=== PATIENT | male | born 1955 | race Caucasian/White ===

== ENCOUNTER 2016-11-17 06:58 | Emergency (ER) | payer MEDICARE, OTHER ==
[~2016-11-17] VITALS: Ht 172.7 cm; Wt 95.5 kg
[2016-11-17] MEDS ORDERED: 0.9% Sodium Chloride 1,000 ML IV ONE (06:59)
[2016-11-17 07:00] VITALS: BP 123/94; PULSE 192; RESP 19; O2SAT 99
[2016-11-17] MEDS ORDERED: Adenosine 3 mg/mL 2 mL Inj IVPUSH ONE ×2 (07:15)
[2016-11-17 07:35] LABS: BASOPHILS % (AUTO) 0.4 % (0-3); EOSINOPHILS % (AUTO) 2.4 % (0-5); MONOCYTES % (AUTO) 12.9 % (4-12); Mean Corpuscular Hemoglobin 31.2 pg (27.0-35.0); Mean Corpuscular Volume 90.6 fL (81-100); NEUTROPHILS % (AUTO) 45.4 % (40-74); Platelet Count 275 bil/L (150-400)
[2016-11-17 07:53] LABS: TROPONIN T 0.01 ug/L (0.0-0.011)
[2016-11-17 08:04] LABS: Magnesium 2.2 mg/dL (1.6-2.6)
--- NOTE | 2016-11-17 08:29 | DRSVH ---
PROCEDURE: X-RAY CHEST ONE VIEW, PORTABLE ([id number]) INDICATIONS: SVT, recurrent TECHNIQUE: One view of the chest was acquired. COMPARISON: None. FINDINGS: Surgical changes and devices: None. Lungs and pleura: No pleural effusions or pneumothorax. Lungs are clear. Mediastinum: Mediastinal contours appear normal. Heart size is normal. Bones and chest wall: No suspicious bony lesions. Overlying soft tissues appear unremarkable. IMPRESSION: No acute cardiopulmonary findings. Dictated by: Sasha Back M.D. on 11/17/2016 at 8:27 Approved by: Sasha Back M.D. on 11/17/2016 at 8:28
--- NOTE | 2016-11-17 09:24 | ED.REPORT ---
HPI-General Illness Date of Service Nov 17, 2016 ED Provider: Makenzie Carey MD Blaine Brody is a 61yoM with PMH remarkable for HTN and recurrent SVT once requiring reported chemical cardioversion in [place], [place], the patient presents with several hours of racing heart rate. The patient stats that he does not have any chest pain, nausea, or shortness of breath currently. He admits to mild lightheadedness upon standing which is described as mild as well as diaphoresis. The patient states that he has not seen a carediologist and he didn't have a PCP or take his HTN medication because he did not have insurance. He is unsure of what his blood pressure medications were it reportedly took several medications to control, and he knows he took a water pill. His blood pressure is baseline between 150 and 180mmHg systolic and his heart rate is typically 90-100bpm. Nursing Notes Stated Complaint: RAPID HEART RATE Chief Complaint: Dysrhythmia/Cardiac Allergies: Coded Allergies: No Known Allergies (Unverified , 11/17/16) General Time Seen by MD: 07:20 Chief Complaint Other (racing heart rate and sweating) Hx Obtained From: Patient Arrived By: Walk-in (POV) Onset Occurred: 1 - 4 hours ago Symptom Duration: Since onset Severity: Current: No pain currently Severity: Maximum: No pain Recent Healthcare: No recent doctor visit, No recent hospitalization Similar Sx Previous: Yes Past Medical History Past Medical History HTN likley SVT requiring chemical cardioversion Past Surgical History bilateral knee cleanouts Smoking History Current Every Day Smoker, Heavy Tobacco Smoker (1ppd for 40 years) Social History retired from [employer] lives in [facility] Alcohol Use: 1-3 per day Drug Use: Denies drug use Other Social History: Lives alone, , Local resident Ambulatory Status Independent Review of Systems Full Review of Systems Eyes: Denies: Blurred bilateral Respiratory: Denies: Dyspnea on exertion, Non-productive cough, Shortness of breath Cardiovascular: Reports: Palpitations, Denies: Chest pain, Syncope GI: Denies: Abdominal pain, Diarrhea, Nausea, Vomiting Male: Denies Flank pain Musculoskeletal: Denies: Back pain, Extremity swelling Hematologic: Denies Bleeding Endocrine: Denies: Weight gain Skin: Denies Swelling Allergy / Immune: Denies: Allergic reaction Neurologic: Reports: Lightheaded, Denies: Abnormal movement, Focal weakness, Headache, Numbness, Slurred speech , Spinning sensation, Vision change Psychiatric: Denies: Change mental status, Confusion Complete sys rev & neg: except as marked. Physical Exam Vital Signs Vital Signs Date Time Temp Pulse Resp B/P Pulse Ox O2 Delivery O2 Flow Rate FiO2 11/17/16 07:00 192 19 123/94 99 Room Air Initial VS: Reviewed General/Constitutional: Well-developed, Well-nourished Head / Eyes: Atraumatic, Normocephalic, PERRL ENT: Mucous membranes moist, Conjunctiva normal, No scleral icterus Neck: Supple, Non-tender, Full range of motion Respiratory: Breath sounds normal, Clear to auscultation, No respiratory distress Abdomen / GI: Soft, Non-tender, No guarding, No rebound, No distention Back: No CVA tenderness Lymphatic: No lymphadenopathy Extremities: Vascular intact, Neuro intact, No swelling, No tenderness Skin: Warm, No cyanosis Neurologic: Alert, Oriented, Nonfocal Psychiatric: Mood/affect normal, Behavior normal, Normal thought content Respiratory / Chest: Breath sounds NL, Breath sounds = bilat, No respiratory distress Cardiovascular: Heart sounds NL, No murmurs, No rubs, Pulses = bilaterally Heart Rate / Rhythm: Positive: Tachycardia Periph CV / BP Differential: Positive: Capillary refill delayed no notable LE edema Abdomen: Atraumatic, Non-tender, No guarding, No rebound, BS normoactive, No distention Skin: Color NL, No rash, Turgor NL Color / Condition: Positive: Diaphoresis present Neurologic: Oriented X3, Speech NL, No motor deficits, CN II - XII intact Interpretation & Diagnostics Lab Results Interpretation Result Diagram: 11/17/16 0700 11/17/16 0700 Test 11/17/16 07:00 White Blood Count 10.4th/mm3 (3.8-10.1) Red Blood Count 5.55mil/mm3 (4.40-5.80) Hemoglobin 17.3g/dL (13.8-17.2) Hematocrit 50.3% (41.0-50.0) Mean Corpuscular Volume 90.6fL (81-100) Mean Corpuscular Hemoglobin 31.2pg (27.0-35.0) Mean Corpuscular Hemoglobin Concent 34.4% (32.0-37.0) Red Cell Distribution Width 13.4% (12.3-15.4) Platelet Count 275bil/L (150-400) Neutrophils (%) (Auto) 45.4% (40-74) Lymphocytes (%) (Auto) 38.7% (14-46) Monocytes (%) (Auto) 12.9% (4-12) Eosinophils (%) (Auto) 2.4% (0-5) Basophils (%) (Auto) 0.4% (0-3) Sodium Level 138mEq/L (134-144) Potassium Level 4.4mEq/L (3.5-5.2) Chloride Level 101mEq/L (97-108) Carbon Dioxide Level 24mmol/L (18-29) Blood Urea Nitrogen 20mg/dL (8-27) Creatinine 0.77mg/dL (0.76-1.27) Estimat Glomerular Filtration Rate 108mL/min (>59) Glucose Level 144mg/dL (60-99) Calcium Level 8.9mg/dL (8.5-10.1) Magnesium Level 2.2mg/dL (1.6-2.6) Total Bilirubin 0.3mg/dL (0.0-1.2) Aspartate Amino Transf (AST/SGOT) 35U/L (0-50) Alanine Aminotransferase (ALT/SGPT) 71U/L (0-44) Alkaline Phosphatase 80U/L (25-160) Troponin T 0.010ug/L (0.0-0.011) Total Protein 7.3g/dL (6.4-8.4) Albumin 4.2g/dL (3.4-5.0) ECG Interpretation Interpreted by: ED physician Abnormal Rate: 180 Rhythm / Conduction: Tachycardia (narrow complex consistent with SVT, after adenosine IV push patient sinus tachycardia with regular p waves noted on monitor) Procedures SVT Treatment Patient comverted from SVT sinus tachycardia and was monitored for more than 90 minutes without return of SVT Time: 07:30 Procedure Performed by: ED physician, ED resident Consent / Timeout / Setup: Informed consent provided, Consent from patient, Pulse oximeter applied, monitor car operator applied Adenosine IV Attempt # 1: Dose 6mg IVP, Successful, Patient in sinus tach Post-Procedure: Complete relief, No complications, Tolerated procedure well, Patient stable Re-Eval/Medical Decision Med Decision/Clinical Course Patient has a known history of tachycardic arrythmia requiring chemical cardioversion previously, blood work was drawn for troponin and CK/CK-MB ruling out cardiac injury, a EKG showed narrow complex QRS tachycardia consistent with SVT, the patient was prepped with Adenosine and had pvc monitor and defibrillator pads placed, Adenosine cardioversion was successfull the patient was monitored for more than 90minutes without return of SVT. He is directed to follow up with his PCP LULU for a referral to Raffi Ibarra M.D. for cardiac electrical analysis. Counseled Regarding: Diagnosis, Lab results, Need for follow-up, When/why to return to ED Discharge & Departure Primary Impression: SVT (supraventricular tachycardia) Additional Impressions: Encounter for cardioversion procedure History of cardioversion Sinus tachycardia Hypertension Disposition: Home Discharge Condition All VS Reviewed: Yes Condition: Stable Patient Instructions: Supraventricular Tachycardia (ED) Additional Instructions: During your visit to [facility] Emergency Department we obtained blood work for heart injury, hemoglobin levels, and electrolytes. We obtained several EKGs of your heart rhythm both before and after successful cardioversion All your lab values were within normal limits and your EKGs showed identifiable no heart injury We will send you home with recommendations to call your PCP and schedule an ER follow up appointment for as soon as possible so they may refer you to a roof bolter helper, Dr. Leander Ibarra MD is the local licensed pharmacist Do not hesitate to call emergency services or your primary care physician if you experience any of the following. - return of your heart symptoms -Uncontrolled worsening nausea or vomiting. -Severe hypertension. -Syncope or loss of consciousness, or worsening lightheadedness -Chest pain or severe shortness of breath. Follow up with your primary care physician as soon as possible following your emergency department visit for medication checks and general well-being. Referrals: [facility] Emmanuel Blanton MD Crit Care Except Billable Proc Time Spent: 30-74 minutes Services Performed: Patient management by me, Time spent at bedside, Reviewing test results, Reviewing imaging, Discussing patient care, Documentation in record, Time with fam/surrogate Attending Statement Patient seen and examined. Initially presented to the waiting room did not want to be checked in because his heart rate did slow down. After waiting in the waiting room heart rate sped back up again and he chose to be triaged at that point. But back to a room found to be in SVT in the 180s slightly diaphoretic no chest pain no shortness of breath. Adenosine 6 mg used to successfully convert back to sinus rhythm. Labs returned unremarkable no acute coronary syndrome. He is significantly significantly hypertensive and will need follow-up. He states that his blood pressures are typically quite high Stable for discharge at this point copies to: Emmanuel Blanton MD, NICHOLAS K DO Nov 17, 2016 09:24 Makenzie Carey MD Nov 17, 2016 09:57
[2016-11-17 09:45] VITALS: BP 167/114; PULSE 95
[2016-11-17 09:53] VITALS: BP 172/120
== END 2016-11-17 09:50 | disposition home or self-care (01) ==
LOC: SED 06:58
DX: I47.1 Supraventricular tachycardia (principal); I10 Essential (primary) hypertension; J44.9 Chronic obstructive pulmonary disease, unspecified; F17.200 Nicotine dependence, unspecified, uncomplicated; Z29.8 Encounter for other specified prophylactic measures; Z98.890 Other specified postprocedural states; Z86.79 Personal history of other diseases of the circulatory system
CPT/HCPCS: 36415; 71010; 80053; 83735; 84484; 85025; 93005; 94799; 96361; 96374; 99291; J0153; J7030

== ENCOUNTER 2016-12-29 12:24 | Emergency (ER) | payer MEDICARE ==
[~2016-12-29] VITALS: Ht 172.7 cm; Wt 104.5 kg
[2016-12-29 12:27] VITALS: BP 154/119; PULSE 190; RESP 20; O2SAT 98
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
[2016-12-29 12:57] VITALS: BP 169/110; PULSE 115; RESP 24; O2SAT 93
[2016-12-29 13:12] LABS: BASOPHILS % (AUTO) 0.6 % (0-3); MONOCYTES % (AUTO) 11.4 % (4-12); Mean Corpuscular Hemoglobin 31.2 pg (27.0-35.0); Mean Corpuscular Volume 88.6 fL (81-100); Platelet Count 285 bil/L (150-400)
[2016-12-29] MEDS ORDERED: MeTOProlol 1 mg/mL 5 mL Inj IVPUSH ONE (13:30)
[2016-12-29] MEDS ORDERED: Adenosine 3 mg/mL 2 mL Inj ONE (13:31)
[2016-12-29 13:44] LABS: INR 0.9 ratio
[2016-12-29 13:45] VITALS: BP 179/122; PULSE 100; RESP 23; O2SAT 96
[2016-12-29] MEDS ORDERED: Lisinopril 40 Tablet PO ONE (13:50)
[2016-12-29 14:03] LABS: Magnesium 2.1 mg/dL (1.6-2.6)
[2016-12-29] MEDS ORDERED: 0.9% Sodium Chloride 1,000 ML IV ONE (14:16)
[2016-12-29 14:23] LABS: TROPONIN T < 0.010 ug/L (0.0-0.011)
[2016-12-29 14:32] VITALS: BP 189/119; PULSE 86; RESP 20; O2SAT 98
--- NOTE | 2016-12-29 14:40 | DRSVH ---
PROCEDURE: X-RAY CHEST ONE VIEW, PORTABLE ([id number]) INDICATIONS: dysrhythmia TECHNIQUE: One view of the chest was acquired. COMPARISON: [facility], CR, XR CHEST 1VW (PORTABLE), 11/17/2016, 7:20. FINDINGS: Surgical changes and devices: None. Lungs and pleura: No pleural effusions or pneumothorax. There is linear scarring or atelectasis red emonstrated in the right lung base. No acute consolidation. Mediastinum: Mediastinal contours appear normal. Heart size is normal. Bones and chest wall: No suspicious bony lesions. Overlying soft tissues appear unremarkable. IMPRESSION: 1. No acute cardiopulmonary disease. Dictated by: Vicente Garcia M.D. on 12/29/2016 at 14:38 Approved by: Vicente Garcia M.D. on 12/29/2016 at 14:38
== END 2016-12-29 14:37 | disposition home or self-care (01) ==
LOC: SED 12:24
DX: I47.1 Supraventricular tachycardia (principal); I15.9 Secondary hypertension, unspecified; F17.210 Nicotine dependence, cigarettes, uncomplicated; R73.9 Hyperglycemia, unspecified; Z86.73 Personal history of transient ischemic attack (TIA), and cerebral infarction without residual deficits
CPT/HCPCS: 36415; 71010; 80053; 83735; 84484; 85025; 85610; 93005; 96361; 96374; 96375; 99285; J0153; J7030

== ENCOUNTER 2017-01-26 23:09 | Emergency (ER) | payer MEDICARE ==
[~2017-01-26] VITALS: Ht 172.7 cm; Wt 103.0 kg
[2017-01-26 23:10] VITALS: BP 127/88; PULSE 180; RESP 20; O2SAT 96
--- NOTE | 2017-01-26 23:16 | ED.REPORT ---
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 He was driving his car and began experiencing an episode. Pt describes that it, "feels like he's running a marathon." Pt denies CP or SOB. He has had experienced episodes like this previously. He was last seen at the ED for similar symptoms a month ago. Nursing Notes Stated Complaint: RACING HEART Chief Complaint: Dysrhythmia/Cardiac Nursing Notes Reviewed: Yes Allergies: Coded Allergies: No Known Allergies (Unverified , 01/26/17) Scheduled Metoprolol Tartrate (Metoprolol Tartrate) 25 Mg Tablet 25 MG PO BID General Time Seen by MD: 23:15 Chief Complaint Other (heart palpitations) Hx Obtained From: Patient Arrived By: Walk-in Sudden in Onset?: Yes Onset Occurred: Just prior to arrival Symptom Duration: Since onset Severity: Current: No pain currently Associated with: Reports: Diaphoresis Recent Healthcare: Recent doctor visit Similar Sx Previous: Yes Past Medical History Past Medical History HTN Hx paroxysmal SVT Hx TIAs x6 Past Surgical History bilateral knee cleanouts Smoking History Current Every Day Smoker, Heavy Tobacco Smoker Social History retired from [employer] lives in [facility] Alcohol Use: 1-3 per day Drug Use: Denies drug use Other Social History: Lives alone, , Local resident Ambulatory Status Independent Review of Systems heart palpitations Full Review of Systems Respiratory: Denies: Shortness of breath Cardiovascular: Denies: Chest pain GI: Denies: Nausea, Vomiting Skin: Reports Diaphoresis Complete sys rev & neg: except as marked. Physical Exam Vital Signs Vital Signs Date Time Temp Pulse Resp B/P Pulse Ox O2 Delivery O2 Flow Rate FiO2 01/27/17 02:19 36.6 103 28 161/107 95 Room Air 01/26/17 23:10 36.6 180 20 127/88 96 Room Air Initial VS: Reviewed Head / Eyes: Atraumatic, Normocephalic, PERRL Respiratory: Breath sounds normal, Clear to auscultation, No respiratory distress Abdomen / GI: Soft, Non-tender, No guarding, No rebound, No distention Extremities: Vascular intact, Neuro intact, No swelling, No tenderness Neurologic: Alert, Oriented, Nonfocal General/Constitutional: Awake, Alert, Cooperative diaphoretic Heart Rate / Rhythm: Positive: Tachycardia heart inaudible in chest Interpretation & Diagnostics Lab Results Interpretation Result Diagram: 01/26/17232401/26/172324 Test 01/26/17 23:25 01/27/17 01:35 White Blood Count 10.9th/mm3 (3.8-10.1) Red Blood Count 5.05mil/mm3 (4.40-5.80) Hemoglobin 15.9g/dL (13.8-17.2) Hematocrit 45.9% (41.0-50.0) Mean Corpuscular Volume 90.9fL (81-100) Mean Corpuscular Hemoglobin 31.5pg (27.0-35.0) Mean Corpuscular Hemoglobin Concent 34.6% (32.0-37.0) Red Cell Distribution Width 13.3% (12.3-15.4) Platelet Count 260bil/L (150-400) Neutrophils (%) (Auto) 59.1% (40-74) Lymphocytes (%) (Auto) 28.9% (14-46) Monocytes (%) (Auto) 9.0% (4-12) Eosinophils (%) (Auto) 2.1% (0-5) Basophils (%) (Auto) 0.4% (0-3) Sodium Level 139mEq/L (134-144) Potassium Level 3.7mEq/L (3.5-5.2) Chloride Level 101mEq/L (97-108) Carbon Dioxide Level 22mmol/L (18-29) Blood Urea Nitrogen 20mg/dL (8-27) Creatinine 0.87mg/dL (0.76-1.27) Estimat Glomerular Filtration Rate 94mL/min (>59) Glucose Level 203mg/dL (60-99) Calcium Level 9.4mg/dL (8.5-10.1) Magnesium Level 2.0mg/dL (1.6-2.6) Total Bilirubin 0.2mg/dL (0.0-1.2) Aspartate Amino Transf (AST/SGOT) 28U/L (0-50) Alanine Aminotransferase (ALT/SGPT) 67U/L (0-44) Alkaline Phosphatase 83U/L (25-160) Pro-B-Type Natriuretic Peptide 6.40pg/mL (0-210) Total Protein 7.3g/dL (6.4-8.4) Albumin 4.4g/dL (3.4-5.0) Hold Weldon Top Tube Received (Received) Troponin T 0.010ug/L (0.0-0.011) ECG Interpretation ECG Interpretation: wide QRS early transition Time: 11:19 Interpreted by: ED physician Rhythm / Conduction: Tachycardia (rate 174) Time: 11:31 Interpreted by: ED physician Rhythm / Conduction: Tachycardia (116) X-Ray Chest Interpretation Chest Xray Interpretation: Impression: No acute findings View: Portable Interpretation / Wet Read by: Wet read ED physician Re-Eval/Medical Decision Med Decision/Clinical Course 61-year-old presents with one of multiple episodes of paroxysmal SVT. He has sustained rates in the 180 range, without chest pain. He has responded to 12 mg of adenosine with reversion to sinus tachycardia and ultimately sinus rhythm. Troponins are negative 2 and postconversion EKG is reassuring. He is discharged in stable condition. Discussed potential ablation with him at some length. Provided with Dr. Ibarra's number for follow-up. Time of Eval: 00:24 Patient Status: Condition improved Re-Evaluation/Progress Note: Pt rechecked. He is no longer diaphoretic or tachycardic. He will need to remain in the ED for another hour to obtain another troponin read. Plan for metropolol. Pt understands and agrees with plan. All questions addressed. Counseled Regarding: Diagnosis, Lab results, Need for follow-up, When/why to return to ED Discharge & Departure Primary Impression: SVT (supraventricular tachycardia) Disposition: Home Discharge Condition All VS Reviewed: Yes Condition: Stable Additional Instructions: We do not find evidence of cardiac damage. These episodes are individually potentially dangerous, and you should seriously consider ablation. The electrophysiology insole stiffener contact information is provided below. Begin metoprolol one tablet twice daily. Contact your primary care doctor for an electrophysiology referral, and also to recheck you regarding your blood pressure and your medical regimen. Return any time for recurrent symptoms. Return for shortness of breath, nausea , chest pain, or any other new symptom of concern. Avoid excessive caffeine. Referrals: Emmanuel Blanton MD (PCP) Crit Care Except Billable Proc Time Spent: 30-74 minutes (thirty minutes) Services Performed: Patient management by me, Time spent at bedside, Reviewing test results, Reviewing imaging, Discussing patient care, Documentation in record Scribe Attestation Portion of this note were transcribed by Stacie Nava. I, Dr. Montano, personally performed the history, physical exam, and medical decision-making: I reviewed and confirmed the accuracy for the information in the transcribed note. Signed by: jacob Ma, 01/27/17 0100 copies to: Emmnauel Blanton MD, Christopher W MD Jan 26, 2017 23:16 Stacie Nava Jan 26, 2017 23:23
[2017-01-26] MEDS ORDERED: Adenosine 3 mg/mL 2 mL Inj ONE (23:20)
[2017-01-26 23:48] LABS: BASOPHILS % (AUTO) 0.4 % (0-3); EOSINOPHILS % (AUTO) 2.1 % (0-5); Mean Corpuscular Hemoglobin 31.5 pg (27.0-35.0); Mean Corpuscular Volume 90.9 fL (81-100); NEUTROPHILS % (AUTO) 59.1 % (40-74); Platelet Count 260 bil/L (150-400)
[2017-01-27 00:05] LABS: TROPONIN T 0.01 ug/L (0.0-0.011)
[2017-01-27] MEDS ORDERED: Adenosine 3 mg/mL 2 mL Inj IVPUSH ONE (00:25)
[2017-01-27] MEDS ORDERED: METO25TA6 PO (02:10)
[2017-01-27 02:19] VITALS: BP 161/107; PULSE 103; RESP 28; O2SAT 95
--- NOTE | 2017-01-27 09:15 | DRSVH ---
PROCEDURE: X-RAY CHEST ONE VIEW, PORTABLE ([id number]) INDICATIONS: rapid heart rate TECHNIQUE: One view of the chest was acquired. COMPARISON: [facility], CR, XR CHEST 1VW (PORTABLE), 12/29/2016, 13:27. FINDINGS: Surgical changes and devices: None. Lungs and pleura: No pleural effusions or pneumothorax. Lungs are clear. Mediastinum: Mediastinal contours appear normal. Heart size is normal. Bones and chest wall: No suspicious bony lesions. Overlying soft tissues appear unremarkable. IMPRESSION: No acute cardiopulmonary disease process. Dictated by: Danita Rodriguez MD, PhD on 01/27/2017 at 9:13 Approved by: Danita Rodriguez MD, PhD on 01/27/2017 at 9:13
== END 2017-01-27 02:27 | disposition home or self-care (01) ==
LOC: SED 23:09
DX: I47.1 Supraventricular tachycardia (principal); I10 Essential (primary) hypertension; F17.200 Nicotine dependence, unspecified, uncomplicated; Z86.73 Personal history of transient ischemic attack (TIA), and cerebral infarction without residual deficits
CPT/HCPCS: 36415; 71010; 80053; 83735; 83880; 84484; 85025; 93005; 96374; 99291; J0153

== ENCOUNTER 2017-02-09 09:17 | Emergency (ER) | payer MEDICARE ==
[~2017-02-09] VITALS: Ht 172.7 cm; Wt 104.5 kg
[~2017-02-09 09:17] MED LIST: METO25TA6 PO
[2017-02-09 09:21] VITALS: BP 127/95; PULSE 192; PULSE 195; RESP 30; RESP 32; O2SAT 97
--- NOTE | 2017-02-09 09:26 | ED.REPORT ---
HPI-Chest Pain 40 and Over Date of Service February 09, 2017 ED Provider: Berhane Polo DO Pt is a 61 y.o. 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 He reports associated SOB and lightheadedness. He states bearing down does not relieve his sx. Pt has been seen for the same sx three times this year (11/17, 12/29, and 01/26). Nursing Notes Stated Complaint: RAPID HEART RATE Chief Complaint: Dysrhythmia/Cardiac Nursing Notes Reviewed: Yes Allergies: Coded Allergies: No Known Allergies (Unverified , 02/11/17) Scheduled Metoprolol Succinate ER (Metoprolol Succinate ER) 50 Mg Tab.er.24h 50 MG PO DAILY Metoprolol Tartrate (Metoprolol Tartrate) 25 Mg Tablet 25 MG PO BID General Time Seen by MD: 09:26 Chief Complaint Other (Rapid palpitations) Hx Obtained From: Patient Arrived By: Walk-in Sudden in Onset?: Yes Onset Occurred: 16 - 30 minutes ago Symptom Duration: Since onset Severity: Current: No pain currently Severity: Maximum: No pain Recent Healthcare: No recent hospitalization Similar Sx Previous: Yes Past Medical History Past Medical History HTN Hx paroxysmal SVT Hx TIAs x6 Past Surgical History bilateral knee cleanouts Smoking History Current Every Day Smoker, Heavy Tobacco Smoker Social History retired from [employer] lives in [facility] Alcohol Use: 1-3 per day Drug Use: Denies drug use Other Social History: Lives alone, , Local resident Ambulatory Status Independent Review of Systems Respiratory: Reports: Shortness of breath Cardiovascular: Reports: Palpitations (Rapid) Neurologic: Reports: Lightheaded Complete sys rev & neg: except as marked. Physical Exam Initial Vital Signs Vital Signs (First) Date Time Temp Pulse Resp B/P Pulse Ox O2 Delivery O2 Flow Rate FiO2 02/09/17 09:21 195 32 97 Room Air 02/09/17 09:21 36.8 127/95 Initial VS: Reviewed Head / Eyes: Atraumatic, Normocephalic, PERRL Extremities: Vascular intact, Neuro intact Skin: Warm, Dry, No cyanosis Neurologic: Alert, Oriented, Nonfocal Psychiatric: Mood/affect normal, Behavior normal, Normal thought content General/Constitutional: Awake, Alert, Well developed, Well hydrated, Well nourished Appearance / Presentation: Positive: Obese Diaphoretic Respiratory / Chest: Atraumatic, Breath sounds NL, Breath sounds = bilat, No respiratory distress Cardiovascular: Regular rhythm, Heart sounds NL, Peripheral circulation NL Heart Rate / Rhythm: Positive: Tachycardia Abdomen: Atraumatic, No distention Interpretation & Diagnostics Lab Results Interpretation Result Diagram: 02/09/17 0949 02/09/17 0949 Test 02/09/17 09:49 02/09/17 12:20 White Blood Count 10.5th/mm3 (3.8-10.1) Red Blood Count 5.59mil/mm3 (4.40-5.80) Hemoglobin 17.2g/dL (13.8-17.2) Hematocrit 49.6% (41.0-50.0) Mean Corpuscular Volume 88.7fL (81-100) Mean Corpuscular Hemoglobin 30.8pg (27.0-35.0) Mean Corpuscular Hemoglobin Concent 34.7% (32.0-37.0) Red Cell Distribution Width 13.5% (12.3-15.4) Platelet Count 306bil/L (150-400) Neutrophils (%) (Auto) 64.8% (40-74) Lymphocytes (%) (Auto) 24.5% (14-46) Monocytes (%) (Auto) 8.4% (4-12) Eosinophils (%) (Auto) 1.4% (0-5) Basophils (%) (Auto) 0.6% (0-3) D-Dimer 0.60mg/L FEU (<0.50) Sodium Level 138mEq/L (134-144) Potassium Level 4.5mEq/L (3.5-5.2) Chloride Level 101mEq/L (97-108) Carbon Dioxide Level 21mmol/L (18-29) Blood Urea Nitrogen 13mg/dL (8-27) Creatinine 0.86mg/dL (0.76-1.27) Estimat Glomerular Filtration Rate 95mL/min (>59) Glucose Level 241mg/dL (60-99) Hemoglobin A1c 6.7% (4.8-5.6) Calcium Level 9.4mg/dL (8.5-10.1) Magnesium Level 2.1mg/dL (1.6-2.6) Total Bilirubin 0.4mg/dL (0.0-1.2) Aspartate Amino Transf (AST/SGOT) 29U/L (0-50) Alanine Aminotransferase (ALT/SGPT) 70U/L (0-44) Alkaline Phosphatase 87U/L (25-160) Troponin T 0.010ug/L (0.0-0.011) Total Protein 7.4g/dL (6.4-8.4) Albumin 4.1g/dL (3.4-5.0) Thyroid Stimulating Hormone (TSH) 3.350uIU/mL (0.450-4.500) Free Thyroxine 1.07ng/dL (0.82-1.77) Hold Urine Received (Received) ECG Interpretation ECG Interpretation: SVT with rate of 183 Time: 09:34 Interpreted by: ED physician ECG Interpretation: Left AV block Time: 11:30 Interpreted by: ED physician Rhythm / Conduction: Tachycardia (101) Repeat ECG: Repeat ECG unchanged Cardiac / Vascular Lab Interp D-Dimer elevated CT Chest Interpretation IMPRESSION: 1. No acute pulmonary embolus. 2. Multiple 2-5 mm diameter pulmonary nodules. Six-month followup CT recommended to ensure stability. 3. Questionable left adrenal gland mass. Nonemergent adrenal mass protocol CT recommended. Dictated by: Sasha Back M.D. on 02/09/2017 at 12:38 Approved by: Sasha Back M.D. on 02/09/2017 at 12:40 Procedures SVT Treatment Time: 09:38 Procedure Performed by: ED physician Consent / Timeout / Setup: Informed consent provided, Consent from patient, Time-out performed, Oxygen administered, Pulse oximeter applied, athletic monitor applied Bearing Down - Valsalva: Patient still in SVT Adenosine IV Attempt # 1: Dose 6mg IVP, Unsuccessful, Patient still in SVT Adenosine IV Attempt # 2: Dose 12mg IVP, Successful, Patient in sinus tach Post-Procedure: Tolerated procedure well, Patient stable Re-Eval/Medical Decision Med Decision/Clinical Course 61-year-old male with a history of recurrent SVT presents in SVT that started spontaneously this morning approximately 20 minutes prior to arrival. He has not had a workup to figure out why this continues to happen. He did not initially respond to 6 mg of adenosine, however 12 mg converted him back to normal sinus rhythm. He did remain tachycardic in the 110s despite being given IV fluids for possible dehydration. Today after consulting with Dr. Marley, our explosive operator fuse, we checked a TSH and free T4 which was normal, a d-dimer which returned elevated and subsequent CT chest for pulmonary embolus turned negative. However on this exam it was noted that he had an adrenal mass and in light of his hypertension we will be checking urine metanephrines as an outpatient. Incidental pulmonary nodules were also found which will require follow-up CT, and I discussed this with the patient. His urine drug screen was negative. He also needs an echocardiogram as an outpatient. Dr. Marley will see if she can expedite the consultation with Dr. Ibarra. Patient is interested in having an ablation to eliminate this ongoing recurrence. He was discharged today with an increased dose of his metoprolol XL, now taking 50 mg daily. Source of Hx: Old records Time of Eval: 09:42 Re-Evaluation/Progress Note: After SVT treatment procedure pt is improved with a HR in the 120's Time of Eval: 11:20 Re-Evaluation/Progress Note: Pt rechecked. Pt is still tachycardic with HR in 110's. Discussed consult with Dr. Marley. Time of Eval: 12:11 Re-Evaluation/Progress Note: Pt notified of elevated d-dimer and need for CTA, he understands and agrees with plan. Time of Eval: 13:06 Re-Evaluation/Progress Note: Discussed lab results, imaging, and plan for discharge. Pt understands and agrees with plan. Consultation #1: Referral / Consult Name: Stacy Marley MD Consulted With: Cardiology Call Returned at: 11:14 Note: Discussed pt condition. Recommended TSH and T4 as well as outpatient echo. Will see pt in ED Consultation #2: Referral / Consult Name: Stacy Marley MD Consulted With: Cardiology Call Returned at: 13:16 Note: Recommends toprol xl 50mg for pt. Counseled Regarding: Diagnosis, Lab results, Need for follow-up, When/why to return to ED Discharge & Departure Primary Impression: SVT (supraventricular tachycardia) Additional Impressions: Hyperglycemia Lung nodules Adrenal mass Ruled Out: Pulmonary emboli, Hypothyroidism, Hyperthyroidism Disposition: Home Discharge Condition All VS Reviewed: Yes Condition: Improved Additional Instructions: Thank you for entrusting us with your care today. You were in a rhythm called supraventricular tachycardia when you arrived, it was converted using 12mg Adenosine. I recommend you call Dr. Ibarra's office on Saturday to schedule a follow-up appointment. Your imaging showed long nodules and an adrenal mass and your lab results showed hyperglycemia. You should follow-up with your primary care provider regarding these diagnoses for further work-up. Return if you develop any new or worsening symptoms. Dr. Marley recommends we increase your metoprolol XL from 25 mg once daily to 50 mg once daily. Have the outpatient urine test done to look for other causes for your recurring arrhythmia. Referrals: Emmanuel Blanton MD (PCP) Maria Eugenia Attestation Portions of this note were transcribed by Vee Martell. I, Dr. Polo personally performed the history, physical exam and medical decision-making; I reviewed and confirmed the accuracy of the information in the transcribed note. Signed by: Maria Eugenia Babin, 02/09/17 and 1315 copies to: Emmanuel Blanton MD, Gary R DO February 09, 2017 09:26 VEE MARTELL February 09, 2017 09:33
[2017-02-09] MEDS ORDERED: Adenosine 3 mg/mL 2 mL Inj ONE ×2 (09:27→09:35)
[2017-02-09 09:30] VITALS: BP 112/96; PULSE 183; RESP 22; O2SAT 94
[2017-02-09 09:53] VITALS: BP 126/99; PULSE 106; RESP 18; O2SAT 92
[2017-02-09 09:58] LABS: BASOPHILS % (AUTO) 0.6 % (0-3); EOSINOPHILS % (AUTO) 1.4 % (0-5); MONOCYTES % (AUTO) 8.4 % (4-12); Mean Corpuscular Hemoglobin 30.8 pg (27.0-35.0); Mean Corpuscular Volume 88.7 fL (81-100); NEUTROPHILS % (AUTO) 64.8 % (40-74); Platelet Count 306 bil/L (150-400)
[2017-02-09 10:17] LABS: TROPONIN T 0.01 ug/L (0.0-0.011)
[2017-02-09 10:28] LABS: Magnesium 2.1 mg/dL (1.6-2.6)
[2017-02-09 10:44] VITALS: BP 147/92; PULSE 107; RESP 18; O2SAT 94
[2017-02-09 11:30] VITALS: BP 133/96; PULSE 104; RESP 19; O2SAT 93
[2017-02-09] MEDS ORDERED: 0.9% Sodium Chloride 1,000 ML IV ONE (11:44)
--- NOTE | 2017-02-09 12:42 | DRSVH ---
PROCEDURE: CT ANGIO CHEST PULMONARY EMBOLISM ([id number]) INDICATIONS: tachycardia, sob, elevated d dimer TECHNIQUE: After the administration of intravenous contrast, 2 mm thick sections acquired from the pulmonary api nelson to the posterior costophrenic angles. 3-dimensional maximum intensity projection (MIP) coronal a nd sagittal reformats were then acquired through the thorax. For radiation dose reduction, the follo wing was used: automated exposure control, adjustment of mA and/or kV according to patient size. COMPARISON: None. FINDINGS: Image quality: Excellent. Pulmonary arteries: Pulmonary arteries are normal in size, and demonstrate no intraluminal filling d efects to suggest central pulmonary embolism. Lungs and pleura: The there multiple 2-5 mm diameter pulmonary nodules bilaterally. For example a 3 m m nodule in the right lower lobe (series 5, image 32), a 4 mm diameter pulmonary nodule within the le ft upper lobe (series 5, image 19), and a 5 mm diameter pulmonary nodule in the left lower lobe (seri es 5, image 29). Mediastinum: Heart size is normal, without pericardial effusion. No mediastinal or hilar adenopathy . Thoracic aorta is normal in caliber and enhancement. Esophagus is normal in caliber, without hiat al hernia. Bones and chest wall: No suspicious bony lesions. Ribs and thoracic spine appear intact throughout. Thyroid gland is unremarkable. No axillary or supraclavicular adenopathy. Abdomen: The liver is diffusely hypodense suggesting hepatic steatosis. A 3.1 cm in diameter interme diate density mass is present in the expected region of the left adrenal gland. Visualized upper abdo daron solid organs appear otherwise normal in the early arterial phase of enhancement. IMPRESSION: 1. No acute pulmonary embolus. 2. Multiple 2-5 mm diameter pulmonary nodules. Six-month followup CT recommended to ensure stability. 3. Questionable left adrenal gland mass. Nonemergent adrenal mass protocol CT recommended. Dictated by: Sasha Back M.D. on 02/09/2017 at 12:38 Approved by: Sasha Back M.D. on 02/09/2017 at 12:40
[2017-02-09] MEDS ORDERED: METO-272 PO (13:19)
[2017-02-09 14:29] VITALS: BP 139/87; PULSE 96; RESP 16; O2SAT 95
--- NOTE | 2017-02-09 14:51 | CONS ---
[address] [address] CONSULTATION REPORT PATIENT: JYOTHI DANIELS : 1955 MR#: [id number] ADMIT: 02/09/2017 JOB ID: [id number] DATE OF SERVICE: 02/09/2017 CARDIOLOGY CONSULTATION: CHIEF COMPLAINT: Palpitations. HISTORY OF PRESENT ILLNESS: The patient is a delightful 61-year-old man who has been seen in the emergency department for palpitations four times in the last four months. He was seen November 17, December 29, January 26 and February 09, 2017. He experiences significant dizziness and palpitations. The problem apparently began several years ago in [place], [place] and was treated with a chemical cardioversion. I reviewed all available EKGs. EKG performed November 17, 2016 demonstrated pseudo R prime in lead V1, regular narrow complex tachycardia with a cycle length of 320 msec. The patient responded favorably to adenosine. Post conversion EKG November 17, 2016 demonstrated sinus tachycardia at a rate of 106 beats per minute. At that time there was no obvious trigger. Potassium was 4.4. Troponin was negative. Magnesium was 2.2. 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 Once again cycle length is 320 msec. Post cardioversion EKG unfortunately is not available for review. Subsequently the patient came back January 26 once again with palpitations. EKG demonstrated regular narrow complex tachycardia with pseudo R prime and cycle length is 360 msec. Post cardioversion EKG showed sinus tachycardia with a right bundle branch block, QRS complex morphology, left anterior fascicular block and poor R-wave progression in precordial leads. At that time normal sinus rhythm was restored via adenosine injection. The patient had tried vagal maneuvers at home but was unsuccessful. 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 Adenosine successfully restored normal sinus rhythm and Cardiology is consulted to assist with management. PAST MEDICAL HISTORY: 1. Hypertension-on lisinopril, Norvasc and Toprol-XL 25 mg daily. The patient is closely monitored by Dr. Emmanuel Blanton of [facility] [place] in [place]. 2. Excess weight. 3. History of regular narrow complex tachycardia with five ED visits in his life and four ED visits in the past three months, each event successfully resolved with adenosine injection. PAST SURGICAL HISTORY: Bilateral knee arthroscopic surgery. SOCIAL HISTORY: The patient is retired from construction industry. He lives in [place]. He is accompanied by his brother, Toni. He unfortunately is going through a very stressful time and foreclosing on his home right now. He thinks that is what is triggering his palpitations. He denies drug use. He unfortunately smokes one pack per day for the past 40 years. He lives alone and he says he drinks 1-3 alcoholic beverages per day. FH - brother with some heart problems ALLERGIES: No known drug allergies. HOME MEDICATIONS: 1. Toprol-XL 25 mg daily. 2. Lisinopril 10 mg daily. 3. Norvasc 5 mg daily. REVIEW OF SYSTEMS: He reports anhedonia. No weight loss. No weight gain. No problems falling or staying asleep. He has significant anxiety. Otherwise 10 point review of systems is negative. PHYSICAL EXAM: Overweight man in no apparent distress at this time. Blood pressure 112/96, temperature 36.8, pulse 104, up to 180 beats per minute. Currently 100 beats per minute. Satting 92% on room air. Well-nourished man, no apparent distress. Eyes: No scleral icterus. Skin korin complexion. No rashes or lesions. Heart: Normal S1, S2. No murmurs. Lungs: Clear to auscultation bilaterally. Abdomen: Soft, positive bowel sounds. No hepatosplenomegaly. Extremities: Warm, well perfused. No clubbing, cyanosis or edema. Skin: No rashes or lesions. LABORATORIES: Reviewed. His CBC shows mildly elevated white count of 10.5, creatinine 0.8. Transaminase is normal. AST 29, ALT 70. His ALT has been stably elevated for a while. I do not see any hepatitis C checkups. Troponin T is negative. D-dimer 0.6 (elevated). CT PE protocol with no PE. Multiple 2-5 mm diameter pulmonary nodules. Recommend six month CT scan followup to ensure stability. Diffusely hypodense liver suggesting hepatic steatosis and 3.1 cm diameter intermediate density mass in the region of the left adrenal gland. Radiologist recommended further workup but it is not urgent. PLAN: Step one echocardiogram as an outpatient to evaluate the structural aspects of his heart and tentatively anticipate slow pathway modification. I will message Dr. Ibarra's delinquent tax collection assistant and arrange echocardiogram as well as urgent consultation to discuss ablation. In the interim, he will continue antihypertensives drugs and increase Toprol-XL from 25 mg daily up to 50 mg daily. In terms of his depression, he reports anhedonia. I recommended for him to discuss this problem further with his primary care provider. He has supportive family and he contracts for safety. Thank you very much for the opportunity to evaluate this patient. NATALY
== END 2017-02-09 14:31 | disposition home or self-care (01) ==
LOC: SED 09:17
DX: I47.1 Supraventricular tachycardia (principal); R73.9 Hyperglycemia, unspecified; R91.8 Other nonspecific abnormal finding of lung field; E27.9 Disorder of adrenal gland, unspecified; I10 Essential (primary) hypertension; F17.200 Nicotine dependence, unspecified, uncomplicated; Z86.73 Personal history of transient ischemic attack (TIA), and cerebral infarction without residual deficits
CPT/HCPCS: 36415; 71275; 80053; 83036; 83735; 84439; 84443; 84484; 85025; 85378; 93005; 96361; 96374; 99285; J0153; J7030; Q9967

== ENCOUNTER 2017-02-11 04:50 | Emergency (ER) | payer MEDICARE ==
[~2017-02-11] VITALS: Ht 172.7 cm; Wt 104.5 kg
[~2017-02-11 04:50] MED LIST changes: +METO-272 PO
[2017-02-11] MEDS ORDERED: Adenosine 3 mg/mL 2 mL Inj ONE (04:54)
[2017-02-11 05:06] LABS: BASOPHILS % (AUTO) 0.4 % (0-3); EOSINOPHILS % (AUTO) 1.9 % (0-5); MONOCYTES % (AUTO) 11.2 % (4-12); Mean Corpuscular Hemoglobin 30.9 pg (27.0-35.0); Mean Corpuscular Volume 89.2 fL (81-100); NEUTROPHILS % (AUTO) 53.5 % (40-74); Platelet Count 319 bil/L (150-400)
[2017-02-11 05:07] VITALS: BP 123/83; PULSE 185; RESP 27; O2SAT 95
--- NOTE | 2017-02-11 05:15 | ED.REPORT ---
HPI-General Illness Date of Service February 11, 2017 ED Provider: Marcos Cohn MD Patient is a 61 year old male with a history of SVT, hypertension and TIAx6 who was seen 2 days ago at the ED for the same complaint and given a SVT treatment that was successful. The patient presents to the ED due to rapid palpitations onset 15 minutes ago. Associated symptoms include shortness of breath. He denies chest pain. Nursing Notes Stated Complaint: POSSIBLE HEART RHYTHM CHANGES Chief Complaint: Dysrhythmia/Cardiac Nursing Notes Reviewed: Yes Allergies: Coded Allergies: No Known Allergies (Unverified , 02/11/17) Scheduled Metoprolol Succinate ER (Metoprolol Succinate ER) 50 Mg Tab.er.24h 50 MG PO DAILY Metoprolol Tartrate (Metoprolol Tartrate) 25 Mg Tablet 25 MG PO BID General Time Seen by MD: 04:56 Chief Complaint Other (rapid palpitations) Hx Obtained From: Patient Arrived By: Walk-in Sudden in Onset?: Yes Onset Occurred: 1 - 15 minutes ago Symptom Duration: Since onset Location: : Chest Associated with: Reports: Shortness of breath, Denies: Chest pain Recent Healthcare: No recent hospitalization, Recent doctor visit Similar Sx Previous: Yes Past Medical History Past Medical History HTN Hx paroxysmal SVT Hx TIAs x6 Past Surgical History bilateral knee cleanouts Smoking History Current Every Day Smoker Social History retired from [employer] lives in [facility] Alcohol Use: 1-3 per day Drug Use: Denies drug use Other Social History: Lives alone, , Local resident Ambulatory Status Independent Review of Systems Full Review of Systems Respiratory: Reports: Shortness of breath, Denies: Non-productive cough Cardiovascular: Reports: Palpitations, Denies: Chest pain Complete sys rev & neg: except as marked. Physical Exam Vital Signs Vital Signs Date Time Temp Pulse Resp B/P Pulse Ox O2 Delivery O2 Flow Rate FiO2 02/11/17 05:35 111 18 133/78 95 Room Air 02/11/17 05:07 185 27 123/83 95 Room Air Initial VS: Reviewed, Vital signs abnormal General/Constitutional: Awake, Alert Behavior: Positive: Anxious no peripheral edema Head / Eyes: Atraumatic, Normocephalic, PERRL, EOMI Neck: Atraumatic, Full range of motion, No JVD Respiratory / Chest: Atraumatic, Breath sounds NL, Breath sounds = bilat, No respiratory distress Heart Rate / Rhythm: Positive: Irregular rhythm (rapid rate 180) Abdomen: Atraumatic, Soft, Non-tender Skin: Atraumatic, Color NL, No rash, Warm, Dry Neurologic: Oriented X3, Speech NL, No motor deficits, No sensory deficits Psychiatric: Affect NL, Mood NL Interpretation & Diagnostics Lab Results Interpretation Result Diagram: 02/11/17 0455 02/11/17 0455 Test 02/11/17 04:55 White Blood Count 10.7th/mm3 (3.8-10.1) Red Blood Count 5.86mil/mm3 (4.40-5.80) Hemoglobin 18.1g/dL (13.8-17.2) Hematocrit 52.3% (41.0-50.0) Mean Corpuscular Volume 89.2fL (81-100) Mean Corpuscular Hemoglobin 30.9pg (27.0-35.0) Mean Corpuscular Hemoglobin Concent 34.6% (32.0-37.0) Red Cell Distribution Width 13.5% (12.3-15.4) Platelet Count 319bil/L (150-400) Neutrophils (%) (Auto) 53.5% (40-74) Lymphocytes (%) (Auto) 32.6% (14-46) Monocytes (%) (Auto) 11.2% (4-12) Eosinophils (%) (Auto) 1.9% (0-5) Basophils (%) (Auto) 0.4% (0-3) Sodium Level 140mEq/L (134-144) Potassium Level 4.5mEq/L (3.5-5.2) Chloride Level 101mEq/L (97-108) Carbon Dioxide Level 23mmol/L (18-29) Blood Urea Nitrogen 13mg/dL (8-27) Creatinine 0.86mg/dL (0.76-1.27) Estimat Glomerular Filtration Rate 95mL/min (>59) Glucose Level 151mg/dL (60-99) Calcium Level 9.8mg/dL (8.5-10.1) Magnesium Level 2.2mg/dL (1.6-2.6) Total Bilirubin 0.4mg/dL (0.0-1.2) Aspartate Amino Transf (AST/SGOT) 31U/L (0-50) Alanine Aminotransferase (ALT/SGPT) 79U/L (0-44) Alkaline Phosphatase 88U/L (25-160) Troponin T 0.010ug/L (0.0-0.011) Total Protein 7.7g/dL (6.4-8.4) Albumin 4.3g/dL (3.4-5.0) Lab values outside NL range: no clinical significance. ECG Interpretation ECG Interpretation: Wide-QRS tachycardia, rate 181 RBBB and LAFB Time: 04:56 Interpreted by: ED physician ECG Interpretation: Sinus tachycardia, rate 110 Ventricular premature complex probable left atrial enlargment left anterior fascicular block probable right ventricular hypertrophy Time: 05:15 Interpreted by: ED physician Procedures SVT Treatment Time: 05:06 Procedure Performed by: ED physician Consent / Timeout / Setup: Consent from patient, Time-out performed, giant tire repairer applied Adenosine IV Attempt # 1: Successful Post-Procedure: No complications, Tolerated procedure well, Patient stable Re-Eval/Medical Decision Med Decision/Clinical Course 61-year-old male with recurrent PSVT presents with a heart rate of 185. He was converted with adenosine 12 mg IV. He subsequently had some tachycardia and was given a single dose of metoprolol with normalization of his right. He had no recurrence of the rapid rate. Electrolytes are normal. He will be discharged to follow-up with Dr. Salas. Source of Hx: Old records Time of Eval: 05:32 Patient Status: Condition improved Time of Eval: 06:16 Patient Status: Condition improved Re-Evaluation/Progress Note: Discussed plan for discharge and follow up. The patient understands and agrees to the plan for discharge. All questions were addressed. Counseled Regarding: Diagnosis, Lab results, Need for follow-up, When/why to return to ED Discharge & Departure Shift Change Sign-Out Patient Care Transferred: Yes Discussed Complaint(s): Yes Laboratory Evaluation: Lab evaluation discussed Procedures: Results discussed Response to Therapy: Improved Primary Impression: SVT (supraventricular tachycardia) Disposition: Home Discharge Condition All VS Reviewed: Yes Condition: Stable Patient Instructions: Palpitations (ED), Supraventricular Tachycardia (ED) Additional Instructions: You were seen today for rapid heart palpitations. Your heart rate improved after SVT treatment. Please follow up with your primary care physician or tripe washer next week to further discuss your care. Return to the emergency department if you develop any new or worsening symptoms including chest pain, rapid heart palpitations or shortness of breath. Referrals: Emmanuel Blanton MD (PCP) Care Transferred to: Dr. Pruitt Care Transferred at: 06:02 Maria Eugenia Attestation Portions of this note were transcribed by Daphnie Chaidez I, Dr. Cohn personally performed the history, physical exam and medical decision-making; I reviewed and confirmed the accuracy of the information in the transcribed note. Signed by: Maria Eugenia Maguire, 02/11/17 and 0617 copies to: Emmanuel Blanton MD, Howard L MD February 11, 2017 05:15 Lady Chaidez February 11, 2017 05:22
[2017-02-11 05:35] VITALS: BP 133/78; PULSE 111; RESP 18; O2SAT 95
[2017-02-11] MEDS ORDERED: MeTOProlol 1 mg/mL 5 mL Inj IVPUSH ONE (05:35)
[2017-02-11 05:42] LABS: Magnesium 2.2 mg/dL (1.6-2.6)
[2017-02-11 05:59] LABS: TROPONIN T 0.01 ug/L (0.0-0.011)
[2017-02-11 07:37] VITALS: BP 146/102; PULSE 93; RESP 16; O2SAT 93
== END 2017-02-11 07:38 | disposition home or self-care (01) ==
LOC: SED 04:50
DX: I47.1 Supraventricular tachycardia (principal); I10 Essential (primary) hypertension; F17.200 Nicotine dependence, unspecified, uncomplicated; Z86.73 Personal history of transient ischemic attack (TIA), and cerebral infarction without residual deficits
CPT/HCPCS: 36415; 80053; 83735; 84484; 85025; 93005; 96361; 96374; 96375; 99285; J0153

== ENCOUNTER 2017-02-23 19:49 | Emergency (ER) | payer MEDICARE ==
[~2017-02-23] VITALS: Ht 175.3 cm; Wt 104.5 kg
[2017-02-23 19:54] VITALS: BP 121/93; PULSE 178; RESP 22; O2SAT 96
--- NOTE | 2017-02-23 20:01 | ED.REPORT ---
HPI-General Illness Date of Service February 23, 2017 ED Provider: Dr. Escobedo Pt is a 61 y/o male w/ a hx of SVT, HTN, hyperlipidemia, presenting to the ED c/ o rapid heart palpitations onset 19:30 today. He has required adenosine multiple times in the past. He tried vagal maneuvers at home with no relief. He has no hx of AL or CAD. He denies CP, SOB, numbness, tingling, lightheadedness, weakness, RODRÍGUEZ. He has not history of PE or DVT. Nursing Notes Stated Complaint: FAST HEART RATE Chief Complaint: Chest Pain Nursing Notes Reviewed: Yes Allergies: Coded Allergies: No Known Allergies (Unverified , 02/11/17) Scheduled Metoprolol Succinate ER (Metoprolol Succinate ER) 50 Mg Tab.er.24h 50 MG PO DAILY Metoprolol Tartrate (Metoprolol Tartrate) 25 Mg Tablet 25 MG PO BID General Time Seen by MD: 20:00 Chief Complaint Other (rapid palps) Hx Obtained From: Patient Arrived By: Walk-in Sudden in Onset?: Yes Onset Occurred: 16 - 30 minutes ago Symptom Duration: Since onset Severity: Current: No pain currently Severity: Maximum: No pain Recent Healthcare: Previous diagnosis Similar Sx Previous: Yes Past Medical History Past Medical History HTN Hx paroxysmal SVT Hx TIAs x6 Hyperlipidemia Past Surgical History bilateral knee cleanouts Smoking History Current Every Day Smoker Social History retired from [employer] lives in [facility] Alcohol Use: 1-3 per day Drug Use: Denies drug use Other Social History: Lives alone, , Local resident Ambulatory Status Independent Review of Systems Full Review of Systems Constitutional: Denies: Chills, Fever Respiratory: Denies: Non-productive cough, Shortness of breath Cardiovascular: Reports: Palpitations, Denies: Chest pain Neurologic: Denies: Focal weakness, Headache, Lightheaded, Numbness, Weakness Complete sys rev & neg: except as marked. Physical Exam Vital Signs Vital Signs Date Time Temp Pulse Resp B/P Pulse Ox O2 Delivery O2 Flow Rate FiO2 02/23/17 21:26 98 22 144/100 99 Room Air 02/23/17 20:42 108 20 138/91 96 Room Air 02/23/17 20:15 111 20 136/100 96 Room Air 02/23/17 19:54 36.4 178 22 121/93 96 Room Air Initial VS: Reviewed, Vital signs abnormal Head / Eyes: Atraumatic, Normocephalic, PERRL ENT: Mucous membranes moist, Conjunctiva normal, No scleral icterus Neck: Supple, Full range of motion Respiratory: Breath sounds normal, Clear to auscultation, No respiratory distress Abdomen / GI: Soft, Non-tender, No guarding, No rebound, No distention Extremities: Vascular intact, Neuro intact, No swelling, No tenderness Skin: Warm, Dry, No cyanosis Neurologic: Alert, Oriented, Nonfocal Psychiatric: Mood/affect normal, Behavior normal, Normal thought content General/Constitutional: Awake, Alert, Cooperative, Not toxic appearing Distress / Hydration: Positive: Distress mild Cardiovascular: Regular rhythm, Heart sounds NL, No gallop, No murmurs, No rubs , Cap refill not delayed, Peripheral circulation NL, Pulses = bilaterally Heart Rate / Rhythm: Positive: Tachycardia (in 170s) Interpretation & Diagnostics Lab Results Interpretation Result Diagram: 02/23/17200302/23/17 2030 Test 02/23/17 20:04 02/23/17 20:30 White Blood Count 11.2th/mm3 (3.8-10.1) Red Blood Count 5.04mil/mm3 (4.40-5.80) Hemoglobin 15.8g/dL (13.8-17.2) Hematocrit 46.0% (41.0-50.0) Mean Corpuscular Volume 91.3fL (81-100) Mean Corpuscular Hemoglobin 31.3pg (27.0-35.0) Mean Corpuscular Hemoglobin Concent 34.3% (32.0-37.0) Red Cell Distribution Width 13.9% (12.3-15.4) Platelet Count 301bil/L (150-400) Neutrophils (%) (Auto) 53.4% (40-74) Lymphocytes (%) (Auto) 30.2% (14-46) Monocytes (%) (Auto) 12.7% (4-12) Eosinophils (%) (Auto) 2.9% (0-5) Basophils (%) (Auto) 0.5% (0-3) Sodium Level 138mEq/L (134-144) Potassium Level 3.8mEq/L (3.5-5.2) Chloride Level 103mEq/L (97-108) Carbon Dioxide Level 20mmol/L (18-29) Blood Urea Nitrogen 18mg/dL (8-27) Creatinine 0.69mg/dL (0.76-1.27) Estimat Glomerular Filtration Rate 123mL/min (>59) Glucose Level 168mg/dL (60-99) Calcium Level 9.1mg/dL (8.5-10.1) Magnesium Level 2.0mg/dL (1.6-2.6) Total Bilirubin 0.3mg/dL (0.0-1.2) Aspartate Amino Transf (AST/SGOT) 31U/L (0-50) Alanine Aminotransferase (ALT/SGPT) 58U/L (0-44) Alkaline Phosphatase 81U/L (25-160) Troponin T 0.010ug/L (0.0-0.011) Total Protein 6.7g/dL (6.4-8.4) Albumin 3.5g/dL (3.4-5.0) ECG Interpretation ECG Interpretation: Narrow complex tachycardia rate 174 Consistent with SVT Lateral ST depression 1-2 mm present No delta waves Compared to prior dated 02/11/17 he is no longer in sinus rhythm Time: 20:03 Interpreted by: ED physician ECG Interpretation: s/p adenosine treatment Sinus tachycardia rate 116 LAD Compared to prior dated 02/11/17 there are no acute changes and he remains tachycardic at his baseline Time: 20:15 Interpreted by: ED physician Normal ECG Interpretation: No acute ischemic changes Procedures SVT Treatment Time: 20:13 Procedure Performed by: ED physician Consent / Timeout / Setup: Consent from patient, Time-out performed, Oxygen administered, Pulse oximeter applied, network mgr applied Bearing Down - Valsalva: Unsuccessful Adenosine IV Attempt # 1: Dose 6mg IVP, Successful, Patient in sinus tach Post-Procedure: Complete relief, No complications, Tolerated procedure well, Patient stable Re-Eval/Medical Decision Med Decision/Clinical Course Pt is a 61 y/o male w/ a hx of SVT, HTN, hyperlipidemia, presenting to the ED c/ o rapid heart palpitations onset 19:30 today. He has required adenosine multiple times in the past. He tried vagal maneuvers at home with no relief. He has no hx of AL or CAD. He denies CP, SOB, numbness, tingling, lightheadedness, weakness, RODRÍGUEZ. He has not history of PE or DVT. Here in the emergency department the patient is hemodynamically stable, he is tachycardic in the 170s with EKG demonstrating what appears to be supraventricular tachycardia. Pads were placed and the patient was placed on continuous cardiac monitoring and pulse oximetry. A 2 L fluid bolus was administered and 6 mg of adenosine was administered by rapid flush. Patient converted to sinus rhythm. Repeat EKG was obtained as documented above. The patient tolerated the procedure well. After conversion to sinus rhythm he was initially borderline tachycardic but this resolved with IV fluids. He has been tachycardic at baseline in the past. He has not had any chest pain, shortness of breath or other symptoms suggestive of acute coronary syndrome or pulmonary embolism. He states that he feels better and would like to go home. He does not want further workup as he has been in and out of supraventricular tachycardia multiple times in the past. He will follow closely with his primary care physician and assistant baseball coach. Prior to discharge follow-up and return precautions were reviewed in detail with the patient who verbalized understanding and agreement with the plan. The patient was discharged in stable condition. Time of Eval: 21:39 Patient Status: Condition resolved, Complete relief Re-Evaluation/Progress Note: Pt rechecked. Informed pt of plan for treatment. Pt understands and agrees with plan for treatment. F/U instructions and RTER warnings given. All questions addressed. Counseled Regarding: Diagnosis, Lab results, Need for follow-up, When/why to return to ED Discharge & Departure Primary Impression: SVT (supraventricular tachycardia) Additional Impressions: History of hypertension History of hyperlipidemia Disposition: Home Discharge Condition All VS Reviewed: Yes Condition: Stable Patient Instructions: Supraventricular Tachycardia (ED) Additional Instructions: Thank you for seeking care at the emergency room. You were seen today for another episode of supraventricular tachycardia. We converted him into normal rhythm using adenosine. Our primary goal today in the ED was to evaluate you for any life-threatening conditions. Your evaluation was reassuring.. You should follow-up with your primary doctor or assistant baseball coach in the next week. You should return to the ED immediately if you develop recurrent episodes of racing heart, fevers, vomiting, cough, shortness of breath, chest pain, lightheadedness, weakness or any other concerning signs or symptoms. Thank you for letting us partake in your care today. Referrals: Emmanuel Blanton MD (PCP) Crit Care Except Billable Proc Time Spent: 30-74 minutes Services Performed: Patient management by me, Time spent at bedside, Reviewing test results, Reviewing imaging, Discussing patient care, Documentation in record Scribe Attestation Portions of this note were transcribed by Dinh Mensah. I, Dr. Escobedo personally performed the history, physical exam and medical decision-making; I reviewed and confirmed the accuracy of the information in the transcribed note. Signed by Maria Eugenia Frey, 02/23/172029 copies to: Emmanuel Blanton MD, Beck O MD February 23, 2017 20:01 DINH MENSAH February 23, 2017 20:04
[2017-02-23] MEDS ORDERED: Adenosine 3 mg/mL 2 mL Inj ONE (20:03)
[2017-02-23 20:10] LABS: BASOPHILS % (AUTO) 0.5 % (0-3); EOSINOPHILS % (AUTO) 2.9 % (0-5); MONOCYTES % (AUTO) 12.7 % (4-12); Mean Corpuscular Hemoglobin 31.3 pg (27.0-35.0); Mean Corpuscular Volume 91.3 fL (81-100); NEUTROPHILS % (AUTO) 53.4 % (40-74); Platelet Count 301 bil/L (150-400)
[2017-02-23 20:15] VITALS: BP 136/100; PULSE 111; RESP 20; O2SAT 96
[2017-02-23 20:42] VITALS: BP 138/91; PULSE 108; RESP 20; O2SAT 96
[2017-02-23 21:08] LABS: TROPONIN T 0.01 ug/L (0.0-0.011)
[2017-02-23 21:26] VITALS: BP 144/100; PULSE 98; RESP 22; O2SAT 99
== END 2017-02-23 21:27 | disposition home or self-care (01) ==
LOC: SED 19:49
DX: I47.1 Supraventricular tachycardia (principal); I10 Essential (primary) hypertension; E78.5 Hyperlipidemia, unspecified; F17.200 Nicotine dependence, unspecified, uncomplicated; Z86.73 Personal history of transient ischemic attack (TIA), and cerebral infarction without residual deficits
CPT/HCPCS: 36415; 80053; 83735; 84484; 85025; 93005; 96361; 96374; 99291; J0153

== ENCOUNTER 2017-03-08 09:23 | Emergency (ER) | payer MEDICARE ==
[~2017-03-08] VITALS: Ht 175.3 cm; Wt 104.5 kg
--- NOTE | 2017-03-08 09:25 | ED.REPORT ---
HPI-General Illness Date of Service Mar 08, 2017 ED Provider: Dr. Carlos Enrique Barboza M.D. The patient is a 61 year old male with a history of hypertension, hyperlipidemia , TIA, and paroxysmal SVT who presents to the ED with tachycardia onset 08:15 this morning, while waiting to receive an echocardiogram. The patient has tried the Valsalva maneuver with no relief. He denies SOB, abdominal pain, chest pain , nausea, vomiting, diarrhea, constipation, hematuria, hematochezia, or other symptoms. The patient has had similar symptoms in the past relieved with adenosine, most recently seen in the ED on 02/23/17. The patient has never received electrocardioversion. He has an appointment with Dr. Ibarra, cardiology , at 11:30 today. Nursing Notes Stated Complaint: SVT Nursing Notes Reviewed: Yes Allergies: Coded Allergies: No Known Allergies (Unverified , 03/08/17) Scheduled Metoprolol Succinate ER (Metoprolol Succinate ER) 50 Mg Tab.er.24h 50 MG PO DAILY Metoprolol Tartrate (Metoprolol Tartrate) 25 Mg Tablet 25 MG PO BID General Time Seen by MD: 09:24 Chief Complaint Other (Tachycardia) Hx Obtained From: Patient Arrived By: Walk-in Sudden in Onset?: Yes Onset Occurred: 1 - 4 hours ago Symptom Duration: Since onset Severity: Current: No pain currently Severity: Maximum: No pain Pertinent Negative: Relieved by nothing Recent Healthcare: Recent doctor visit Similar Sx Previous: Yes Past Medical History Past Medical History HTN Hx paroxysmal SVT Hx TIAs x6 Hyperlipidemia Past Surgical History Bilateral knee cleanouts Smoking History Current Every Day Smoker Social History Retired from construction Lives in [facility] Alcohol Use: 1-3 per day Drug Use: Denies drug use Other Social History: Lives alone, , Local resident Ambulatory Status Independent Review of Systems + Tachycardia Full Review of Systems Constitutional: Denies: Fever Respiratory: Denies: Non-productive cough, Shortness of breath Cardiovascular: Denies: Chest pain GI: Denies: Abdominal pain, Constipation, Diarrhea, Hematochezia, Nausea, Vomiting Male: Denies Hematuria Complete sys rev & neg: except as marked. Physical Exam Vital Signs Vital Signs Date Time Temp Pulse Resp B/P Pulse Ox O2 Delivery O2 Flow Rate FiO2 03/08/17 11:33 36.6 89 127/87 92 Room Air 03/08/17 09:54 100 19 134/97 92 Room Air 03/08/17 09:32 36.5 157 23 127/104 92 Room Air Initial VS: Reviewed Head / Eyes: Atraumatic, Normocephalic ENT: Conjunctiva normal, No scleral icterus Neck: Supple, Full range of motion Respiratory: Breath sounds normal, Clear to auscultation, No respiratory distress Abdomen / GI: Soft, Non-tender Skin: Warm, Dry, No cyanosis Neurologic: Alert, Oriented, Nonfocal Psychiatric: Mood/affect normal, Behavior normal, Normal thought content General/Constitutional: Awake, Alert Cardiovascular: Regular rhythm, Heart sounds NL Heart Rate / Rhythm: Positive: Tachycardia Interpretation & Diagnostics Interpretation & Diagnostics: Lab Results Interpretation Test 03/08/17 09:30 Hold Purple Top Tube Received (Received) Hold Blue Top Tube Received (Received) Hold Kimberly Top Tube Received (Received) Hold Weldon Top Tube Received (Received) ECG Interpretation ECG Interpretation: Supraventricular tachycardia Left anterior fascicular block Probable right ventricular hypertrophy ST depression, probably rate related Time: 09:27 Interpreted by: ED physician ECG Interpretation: REPEAT ECG AFTER ADENOSINE ADMINISTRATION: Sinus tachycardia rate 104 Left atrial enlargement Left anterior fascicular block Probable right ventricular hypertrophy Time: 09:39 Interpreted by: ED physician Re-Eval/Medical Decision Med Decision/Clinical Course 61-year-old male with history of SVT presenting with symptoms exactly similar to previous. EKG demonstrates SVT. Hemodynamically stable here in the ED. As per below, patient converted after 6 mg of adenosine. No chest pain, no other symptoms whatsoever. Discussed with Dr. Ibarra, who kindly saw the patient down here in the emergency department and arranged for outpatient follow-up. Source of Hx: Old records Time of Eval: 09:35 Patient Status: Condition improved Re-Evaluation/Progress Note: Patient rechecked. Adenosine administered. Patient's heart rate has decreased and he is feeling better. Discussed with patient ECG result, diagnosis, and plan for cardiology consult with subsequent discharge. Follow-up and return to the ER instructions given. Patient agrees with plan for care and all questions were addressed. Consultation #1: Referral / Consult Name: Leander Ibarra MD Consulted With: Cardiology Call Returned at: 09:50 Crew Truck Driver: Will see patient, Agrees with eval, Agrees with plan Consultation #2: Referral / Consult Name: Leander Ibarra MD Consulted With: Cardiology Call Returned at: 10:07 Crew Truck Driver: Agrees with eval, Agrees with plan Note: Discussed patient's case. Counseled Regarding: Diagnosis, Need for follow-up, When/why to return to ED Discharge & Departure Primary Impression: SVT (supraventricular tachycardia) Disposition: Home Discharge Condition All VS Reviewed: Yes Condition: Improved Patient Instructions: Supraventricular Tachycardia (ED) Additional Instructions: You saw Dr. Ferrera in the ER. Please follow up with him as discussed. Thank you for allowing us to be a part of your care. Return to the ED if you develop any new or worsening symptoms. Referrals: Emmanuel Blanton MD (PCP) Vinceibdick Attestation Portions of this note were transcribed by Krista Willis. I, Dr. Barboza, personally performed the history, physical exam, and medical decision-making; I reviewed and confirmed the accuracy of the information in the transcribed note. Signed by: Maria Eugenia Magallanes, 03/08/2017, 01:02 copies to: Emmanuel Blanton MD, William B MD Mar 08, 2017 09:25 KRISTA WILLIS Mar 08, 2017 09:32
[2017-03-08] MEDS ORDERED: Adenosine 3 mg/mL 2 mL Inj IVPUSH ONE ×2 (09:30)
[2017-03-08 09:32] VITALS: BP 127/104; PULSE 157; RESP 23; O2SAT 92
[2017-03-08 09:54] VITALS: BP 134/97; PULSE 100; RESP 19; O2SAT 92
[2017-03-08 11:33] VITALS: BP 127/87; PULSE 89; O2SAT 92
--- NOTE | 2017-03-08 12:08 | PROG NOTE ---
[address] [address] PROGRESS NOTE PATIENT: JYOTHI DANIELS : 1955 MR#: [id number] ADMIT: 03/08/2017 JOB ID: [id number] DATE: 03/08/2017 IDENTIFICATION AND HISTORY OF PRESENT ILLNESS: The patient is a pleasant 61-year-old man previously seen in the ER by Dr. Marley for SVT. He has a lifelong history of SVT dating back to his 6th grade of education. His episodes were less frequent but now are becoming more frequent to the point where he is coming to the ER every two weeks with rapid tachycardia and chest discomfort. He has never been able to terminate his episodes with Valsalva maneuver. Adenosine 6 mg routinely works, including today. He was slated to see me in clinic today, but when he was getting his echocardiogram, he went into rapid tachycardia and was unable to break his rhythm with Valsalva. He was, therefore, transferred to the ER where he received 6 mg of adenosine. He feels well otherwise. His echocardiogram shows mildly reduced LV function while he was tachycardic. We do not have an echocardiogram for him in sinus rhythm. He denies any past cardiac history and ever seeing a family life educator. He denies any chest pain, pressure, discomfort, or syncope. He has diabetes and hypertension, both treated with oral medications. I reviewed his ECG. I noted a short RP SVT with a baseline right bundle branch block when he is in normal rhythm. 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 I spent a lengthy amount of time with him describing common mechanisms, including AV honey reentry tachycardia, AVRT, or rarely atrial tachycardia. Given his refractoriness and the severity of his symptoms, I recommended EP study and SVT ablation. I discussed the risks and benefits of the ablation in detail, including the risk of needing pacing therapy if complete heart block is a complication. I also discussed the potential of a left-sided pathway and needing to do a transseptal puncture along with the stroke risks involved with left-sided ablation. Ultimately, he wishes to proceed. PLAN: EP study with SVT ablation. The patient consented for a left-sided ablation as well. Thank you very for allowing me to participate in this patient's care. Please call with questions. I spent approximately 45 minutes with this patient his coordinating care with greater than 50% of time spent in counseling.
== END 2017-03-08 11:35 | disposition home or self-care (01) ==
LOC: SED 09:23
DX: I47.1 Supraventricular tachycardia (principal); I10 Essential (primary) hypertension; E78.5 Hyperlipidemia, unspecified; F17.200 Nicotine dependence, unspecified, uncomplicated; Z86.73 Personal history of transient ischemic attack (TIA), and cerebral infarction without residual deficits
CPT/HCPCS: 93005; 96374; 99284; J0153

== ENCOUNTER 2017-05-14 00:10 | Day surgery (SDC) | payer MEDICARE ==
[~2017-05-14] VITALS: Ht 172.7 cm; Wt 100.0 kg
[2017-05-14 12:58] VITALS: BP 180/111; PULSE 79; RESP 17; O2SAT 93
[2017-05-14 12:58] LABS: BASOPHILS % (AUTO) 0.4 % (0-3); EOSINOPHILS % (AUTO) 1.7 % (0-5); MONOCYTES % (AUTO) 8.4 % (4-12); Mean Corpuscular Hemoglobin 31.1 pg (27.0-35.0); Mean Corpuscular Volume 90.4 fL (81-100); NEUTROPHILS % (AUTO) 63.1 % (40-74); Platelet Count 323 bil/L (150-400)
[2017-05-14 13:50] LABS: INR 0.95 ratio
--- NOTE | 2017-05-14 15:55 | NUR ---
[facility] procedure- Patient arrived to unit with brother. Alert and very anxious about procedure, and how long it would take,and when, etc. BP-164/117. Patient says that he hasn't take Metoprolol dose since Saturday per doctor's instructions. He has remained hypertensive during stay with HR 80-90's. Patient became increasingly more anxious, saying he would rather reschedule procedure instead of waiting for it to be done. Dr Ibarra notified, and orders received to discharge patient and office to call and reschedule procedure at later date. IV's dc'd and patient left unit ambulatory.
--- NOTE | 2017-05-14 16:18 | NUR ---
Discharge- I instructed patient to contact Dr Ibarra's office to reschedule procedure if he did not hear from Cardiology office in 1 week.
== END 2017-05-14 23:59 | disposition home or self-care (01) ==
LOC: SOUO 00:10
PROVIDERS: ATTEND Internal Medicine Cardiovascular Disease
DX: I47.1 Supraventricular tachycardia (principal); Z53.29 Procedure and treatment not carried out because of patient's decision for other reasons
CPT/HCPCS: 36415; 80048; 85025; 85610; 93005; J7030